=== PATIENT | female | born 1960 | race Caucasian/White ===

== ENCOUNTER 2017-10-12 15:57 | Observation (INO) | payer OTHER ==
[~2017-10-12] VITALS: Ht 162.6 cm; Wt 72.6 kg
[2017-10-12 16:08] VITALS: BP 148/67
--- NOTE | 2017-10-12 16:16 | Discharge Summary ---
NO DICTATION, LENGTH 33 SECONDS. RNO MILLIGAN MD Job#: [id number]
[2017-10-12 17:00] VITALS: BP 148/67
[2017-10-12] MEDS ORDERED: ASPIRIN 81 MG CHEW TAB PO ONE (17:15)
[2017-10-12 17:57] LABS: CREATINE KINASE MB 0.7 ng/mL (0.00-5.00); TROPONIN I 0.008 ng/mL (0-0.300)
[2017-10-12 18:04] LABS: CHOL/HDL RATIO 3.8 (3.0-3.6)
--- NOTE | 2017-10-12 19:50 | Consultation ---
DATE OF CONSULTATION: October 12, 2017 CHIEF COMPLAINT: Mrs. Monreal is a 57-year-old white woman who presented to the [facility] emergency room with a complaint of passing out. HISTORY OF PRESENT ILLNESS: The patient was in the bathroom and felt nauseated, began perspiring, thought her heart was racing and fell to the floor and hit her head. She evidently was okay after waking up. She denies any similar occurrence in the past. Does not mention any chest pain and never had chest pain in the past. PAST MEDICAL HISTORY: Relatively insignificant although she appears to avoid doctors. She denies any knowledge of any diabetes. She reports that she might have been thought of being hypertensive at some time in the past but "it went away". MEDICATIONS: She takes no medications at home. PAST SURGICAL HISTORY: She has had previous cholecystectomy and C-sections. PERSONAL/SOCIAL HISTORY: She is a long time smoker. SOCIAL HISTORY: She stopped a long time smoker. REVIEW OF SYSTEMS: GI: She does not report any one else is ill and she thinks she has not eaten any suspicious foods. CARDIAC: She has never had a cholesterol check. PHYSICAL EXAMINATION: GENERAL: Shows a pleasant alert white woman who appears comfortable. Normotensive afebrile. HEENT: Shows only minor abrasion on the left frontal region. Pupils equal, round and reactive. NECK: No jugular venous distention. No bruit. THORAX: Heart sounds S1 and S2 are equal. No murmurs. LUNGS: Clear. ABDOMEN: Protuberant. Normal bowel sounds. Nontender. No masses. No organomegaly. EXTREMITIES: No cyanosis, clubbing or edema. EKG shows sinus rhythm with poor R-wave progression. LABORATORY DATA: Are remarkable only for glucose of 119. AST of 40. IMAGING: CT of the head relatively unremarkable. No hemorrhage, no fracture. ASSESSMENT: Syncope associated with nausea, etiology is not clear. PLAN: Will monitor, check echocardiogram to reassess abnormal EKG. Check cardiac enzymes, lipid profile and will plan Cardiolite in the morning with further management based on clinical course. Thank you for asking me to see her in consultation. Job#: [id number]
[2017-10-12 20:00] VITALS: BP 130/68
[2017-10-12] MEDS ORDERED: MELATONIN 5 MG TABLET PO SCH (21:00)
[2017-10-13] VITALS: BP 125/59
[2017-10-13 01:16] LABS: CREATINE KINASE 34 IU/L (29-168)
[2017-10-13 01:23] LABS: TROPONIN I < 0.001 ng/mL (0-0.300)
--- NOTE | 2017-10-13 01:31 | History and Physical ---
CHIEF COMPLAINT: Syncopal episode. HISTORY: Patient is a 57-year-old female without any significant medical problems. The patient apparently was in the bathroom and after she was using the toilet, she was at the counter washing her hands, and apparently she had developed some nausea, lightheadedness and subsequently fell to the floor and passed out. The patient on following to the floor, she hit her head. Patient was brought into the outpatient emergency room for evaluation. She had some headaches, but otherwise not having any laceration or complications. The patient has no confusion. She did not have any chest pain. No shortness of breath. CT of the brain at the outpatient emergency room was negative. The patient is transferred to acute care for further evaluation. PAST MEDICAL HISTORY: Otherwise unremarkable. No previous history of any coronary disease or cardiac arrhythmia. Patient had a very similar episode, but many years ago. At that time, she had an MRI of the brain that was negative. No further symptoms for a long time until this event. HOME MEDICATIONS: None. PAST SURGICAL HISTORY: Cholecystectomy and . SOCIAL HISTORY: Patient is a long-time smoker. She does not use alcohol or recreational drugs. ALLERGIES: NO KNOWN ALLERGIES. REVIEW OF SYSTEMS: Unremarkable at this time. PHYSICAL EXAMINATION VITAL SIGNS: Temperature is 98, blood pressure 130/68, pulse rate 58, respirations 18. GENERAL: The patient is not in acute distress. She is awake. HEENT: Normocephalic, atraumatic and anicteric. NECK: Supple grossly. PULMONARY: Clear to auscultation bilaterally. CARDIOVASCULAR: S1 and S2. Regular rate and rhythm. ABDOMEN: Soft and unremarkable. EXTREMITIES: No cyanosis or edema. NEUROLOGIC: No gross focal deficit. LABORATORY: Otherwise unremarkable. IMPRESSION: Syncopal episode. PLAN: Carotid Doppler and echocardiogram. Consultation with Dr. Adal Powers. MRA and MRI of the brain with contrast. Will monitor the patient closely. Job#: [id number] JORGE
[2017-10-13 04:00] VITALS: BP_SYST 122; BP_SYST 124; BP_DIAS 60; BP_DIAS 85
[2017-10-13 07:13] LABS: BASOPHILS # (AUTO) 0.1 (0.0-0.1); BASOPHILS % 1.1 % (0.0-1.0); EOSINOPHILS # (AUTO) 0.3 (0.0-0.4); EOSINOPHILS % 4.1 % (0.0-6.0); HEMATOCRIT 47.3 % (34.2-44.1); HEMOGLOBIN 14.9 g/dL (12.0-16.0); LYMPHOCYTES % 27.5 % (18.0-39.1); MEAN CORPUSCULAR HEMOGLOBIN 31.4 pg (28-32); MEAN CORPUSCULAR HGB CONC 31.5 g/dL (31-35); MEAN CORPUSCULAR VOLUME 99.8 fL (81-99); MONOCYTES # (AUTO) 0.6 (0.2-0.8); MONOCYTES % 8.3 % (4.4-11.3); NEUTROPHILS # (AUTO) 4.3 (2.1-6.9); NEUTROPHILS % 58.3 % (38.7-80.0); PLATELET COUNT 281 x10e3/uL (140-360); RED BLOOD COUNT 4.74 x10e6/uL (3.6-5.1); RED CELL DISTRIBUTION WIDTH 15.7 % (11.7-14.4)
[2017-10-13 07:50] VITALS: BP 123/73
[2017-10-13 07:53] LABS: ALANINE AMINOTRANSFERASE 21 IU/L (0-55); ALBUMIN 3.2 g/dL (3.5-5.0); ALBUMIN/GLOBULIN RATIO 1.1 (0.8-2.0); ALKALINE PHOSPHATASE 44 IU/L (40-150); ANION GAP 12.6 mmol/L (8-16); BLOOD UREA NITROGEN 7 mg/dL (7-26); BUN/CREATININE RATIO 10 (6-25); CALCIUM 8.9 mg/dL (8.4-10.2); CARBON DIOXIDE 24 mmol/L (22-29); CHLORIDE 110 mmol/L (98-107); CREATININE, SERUM 0.68 mg/dL (0.57-1.11); EST GLOMERULAR FILTRATION RATE > 60 ML/MIN (60-); GLUCOSE 107 mg/dL (74-118); POTASSIUM 3.6 mmol/L (3.5-5.1); SODIUM 143 mmol/L (136-145)
[2017-10-13 08:00] LABS: CREATINE KINASE MB 0.5 ng/mL (0.00-5.00); TROPONIN I 0.012 ng/mL (0-0.300)
[2017-10-13 08:12] VITALS: BP 123/73
[2017-10-13] MEDS ORDERED: ACETAMINOPHEN 325 MG TAB PO PRN (08:45)
[2017-10-13] MEDS ORDERED: ASPIRIN 81 MG CHEW TAB PO SCH (09:00)
[2017-10-13] MEDS ORDERED: REGADENOSON 0.4 MG/5 ML SYR IV ONE (09:33)
[2017-10-13 12:03] VITALS: BP 133/69
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
[2017-10-13 15:14] VITALS: BP 133/61
--- NOTE | 2017-10-13 18:58 | Diagnostic Imaging Report ---
PROCEDURE: Frontal and lateral views of the chest. COMPARISON: None. INDICATIONS: DIZZINESS, SYNCOPE FINDINGS: Lines/tubes: None. Lungs: The lungs are well inflated and clear. There is no evidence of pneumonia or pulmonary edema. Pleura: There is no pleural effusion or pneumothorax. Heart and mediastinum: Mild enlargement of the cardiac silhouette. Pulmonary vasculature is normal. Tortuous aorta. Bones: No acute bony abnormality. IMPRESSION: 1. mild enlargement of the cardiac silhouette, without acute cardiopulmonary disease. Jc Claire M.D. Dictated by: Jc Claire M.D. on 10/13/2017 at 19:06 Electronically approved by: Jc Claire M.D. on 10/13/2017 at 19:06
--- NOTE | 2017-10-13 22:42 | Cardiology Report ---
DATE OF STUDY: October 13, 2017 LEXISCAN MYOVIEW STRESS TEST The patient had resting perfusion images after injection of 11 mCi of technetium-99M Myoview. Later due to inability to exercise, the patient was given 0.4 mg of Lexiscan intravenously and shortly afterwards 32.1 mCi of technetium-99M Myoview. Perfusion images were taken by rotational tomography. Comparison of resting and Lexiscan stress images shows no evidence of any perfusion defect. Additionally, gated wall motion images were obtained and calculated. Ejection fraction normal at 71%. FINAL IMPRESSION 1. Normal Lexiscan Myoview for perfusion. 2. Normal left ventricular function calculated ejection fraction of 71%. Job#: [id number]
== END 2017-10-13 21:50 | disposition home or self-care (01) ==
LOC: IMCU 15:57
PROVIDERS: ADMIT Internal Medicine; ATTEND Internal Medicine
DX: R55 Syncope and collapse (principal); R11.0 Nausea; F17.210 Nicotine dependence, cigarettes, uncomplicated; Z91.81 History of falling
CPT/HCPCS: 36415; 70544; 70551; 71020; 78452; 80053; 80061; 82550; 82553; 82948; 84484; 85025; 93005; 93017; 93306; 93880; A9502; G0378